=== PATIENT | female | born 1955 | race Caucasian/White ===

== ENCOUNTER 2022-05-24 06:44 | Observation (INO) ==
[2022-05-24] MEDS ORDERED: Ipratropium/Albuterol Neb 3 ML IH ONE (08:00)
[2022-05-24 08:09] LABS: Basophils % 0.5 %; Eosinophils # 0.2 K/mcL (0.0-0.6); Eosinophils % 3.2 %; Hematocrit 36.3 % (35.3-44.9); Hemoglobin 11.3 g/dL (11.5-15.4); Immature Granulocytes % 0.3 % (0-4); Lymphocytes # 2.2 K/mcL (0.6-4.6); Lymphocytes % 36.1 %; Mean Corpuscular HGB Conc 31.1 g/dL (31.6-35.5); Mean Corpuscular Hemoglobin 28.4 pg (28.0-33.3); Mean Corpuscular Volume 91.2 fL (83.0-100.0); Mean Platelet Volume 10.3 fL (9.4-12.4); Monocytes # 0.7 K/mcL (0.0-1.3); Monocytes % 11.2 %; Neutrophils # 2.9 K/mcL (1.6-8.9); Platelet Count 265 K/mcL (140-400); Red Blood Count 3.98 M/mcL (3.82-4.97); Red Cell Distribution Width 14.2 % (11.5-14.5); Segmented Neutrophils % 48.7 %
[2022-05-24 08:31] LABS: Albumin 4.4 g/dL (3.5-5.7); Albumin/Globulin Ratio 1.4 (1.1-2.2); Bilirubin,Direct 0.1 mg/dL (0.0-0.2); Bilirubin,Indirect 0.3 mg/dL (0.0-1.0); Bilirubin,Total 0.4 mg/dL (0.3-1.0); Calcium 9.5 mg/dL (8.6-10.3); Globulin 3.2 g/dL (2.4-3.5); Potassium 3.5 mEq/L (3.5-5.1); Total Protein 7.6 g/dL (6.4-8.9); Troponin I 0.03 ng/mL (< 0.04)
[2022-05-24 09:09] LABS: Influenza A PCR Negative (Negative); Influenza B PCR Negative (Negative); Resp. Syncytial Virus PCR Negative (Negative)
[2022-05-24 09:10] LABS: SARS-CoV-2 by PCR (In House) Negative (Negative)
[2022-05-24 09:23] LABS: INR 1.3; Prothrombin Time 14.4 Seconds (9.4-12.1)
[2022-05-24 09:26] LABS: Activated Partial Thrombo Time 30.5 Seconds (26.0-36.0)
[2022-05-24] MEDS ORDERED: Iopamidol - 370 500 ML MLS IVP ONE (10:32)
[2022-05-24] MEDS ORDERED: Furosemide 40 MG in 0.9 % Sodium Chloride 50 ML IVPB ONE (12:06)
[2022-05-24] MEDS ORDERED: cefTRIAXone 1,000 MG in 0.9 % Sodium Chloride Mini Bag 100 ML IVPB ONE (12:06)
[2022-05-24] MEDS ORDERED: Azithromycin 500 MG in 0.9 % Sodium Chloride 250 ML IVPB ONE (12:06)
[2022-05-24] MEDS ORDERED: Furosemide 40 MG/4 ML VIAL IVP ONE (12:15)
[2022-05-24] MEDS ORDERED: Naloxone 0.4 MG/ML INJ IVP PRN (12:59)
[2022-05-24] MEDS: Levalbuterol Neb 1.25 MG/3 ML IH SCH ×2 (15:49→22:43)
[2022-05-24] MEDS ORDERED: Acetaminophen 325 MG TABLET PO PRN (16:17)
[2022-05-24] MEDS ORDERED: Methyl Salicylate/Menthol 85 APPL/85 GM TUBE TP PRN (16:17)
[2022-05-24] MEDS: *HR* Heparin 5,000 UNIT/ML VIAL SQ SCH (17:07)
[2022-05-25] MEDS: Levalbuterol Neb 1.25 MG/3 ML IH SCH ×4 (04:13→20:14)
[2022-05-25] MEDS: *HR* Heparin 5,000 UNIT/ML VIAL SQ SCH ×2 (05:13→19:30)
[2022-05-25] MEDS ORDERED: Azithromycin 500 MG VIAL ONE (07:20)
[2022-05-25] MEDS: Azithromycin 500 MG in 0.9 % Sodium Chloride 250 ML IVPB SCH (07:27)
[2022-05-25] MEDS ORDERED: cefTRIAXone 1,000 MG in Water for inj. (sterile) 10 ML IVP SCH (12:00)
[2022-05-26] MEDS: Levalbuterol Neb 1.25 MG/3 ML IH SCH ×2 (03:56→09:04)
[2022-05-26 07:28] VITALS: BP 101/59; PULSE 85; TEMP 98.1
[2022-05-26] MEDS: *HR* Heparin 5,000 UNIT/ML VIAL SQ SCH (08:15)
[2022-05-26] MEDS: Azithromycin 500 MG in 0.9 % Sodium Chloride 250 ML IVPB SCH (08:15)
[2022-05-26 09:09] VITALS: O2SAT 94
== END 2022-05-26 10:58 | disposition home or self-care (01) ==
LOC: EMEROOARM 06:44 → 3BNU 06:44 → SUATTDRO 12:49 → 3BNU 13:44
PROVIDERS: ADMIT Hospitalist; ATTEND Internal Medicine